=== PATIENT | female | born 1955 | race Caucasian/White ===

== ENCOUNTER 2024-01-02 16:45 | Inpatient (IN) | payer MEDICARE, OTHER ==
[~2024-01-02] VITALS: Ht 172.7 cm; Wt 83.9 kg
[2024-01-02] VITALS (7 sets, daily range): BP systolic 121–152; BP diastolic 73–96; PULSE 62–74; RESP 17–18; TEMP 97.7–97.9; O2SAT 94–100
[2024-01-02 17:09] LABS: BASOPHILS # (AUTO) 0.1 (0.0-0.1); BASOPHILS % 1.3 % (0.0-1.0); EOSINOPHILS % 0.1 % (0.0-6.0); HEMATOCRIT 42.1 % (34.2-44.1); HEMOGLOBIN 13.2 g/dL (12.0-16.0); LYMPHOCYTES # (AUTO) 2.6 (1.0-3.2); MEAN CORPUSCULAR HEMOGLOBIN 28.8 pg (28-32); MEAN CORPUSCULAR HGB CONC 31.4 g/dL (31-35); MEAN CORPUSCULAR VOLUME 91.9 fL (81-99); MONOCYTES # (AUTO) 0.7 (0.2-0.8); MONOCYTES % 8.2 % (4.4-11.3); NEUTROPHILS % 59.2 % (38.7-80.0); PLATELET COUNT 394 x10e3/uL (140-360); RED BLOOD COUNT 4.58 x10e6/uL (3.6-5.1); RED CELL DISTRIBUTION WIDTH 12.8 % (11.7-14.4); WHITE BLOOD COUNT 8.45 x10e3/uL (4.8-10.8)
[2024-01-02 17:23] LABS: CALCIUM 9.6 mg/dL (8.4-10.2); CREATININE, SERUM 1.04 mg/dL (0.57-1.11)
[2024-01-02] MEDS: ENOXAPARIN SOD INJ 40 MG/0.4 ML SYR SC SCH (18:30)
[2024-01-02] MEDS ORDERED: DIAZEPAM INJ 5 MG/ML 2 ML IV ONE (19:15)
[2024-01-02] MEDS: DIPHENHYDRAMINE HCL INJ 50 MG/ML VIAL IV ONE ×2 (19:19→20:18)
[2024-01-02] MEDS ORDERED: AMLODIPINE-VAL1 EACH PO (19:43)
[2024-01-02] MEDS ORDERED: PIROXICAM10 MG PO (19:43)
[2024-01-02] MEDS ORDERED: FLUOXETINE HCL20 MG PO (19:43)
[2024-01-02] MEDS ORDERED: COLESTIPOL HCL1 G1 PO (19:43)
[2024-01-02] MEDS ORDERED: ARMOUR THYROID30 MG PO (19:43)
[2024-01-02] MEDS: DIAZEPAM 5 MG TAB PO ONE (20:17)
[2024-01-02] MEDS: VALSARTAN 160 MG TAB PO SCH (20:27)
[2024-01-02] MEDS: AMLODIPINE BESYLATE 5 MG TAB PO SCH (20:27)
[2024-01-03] VITALS (11 sets, daily range): BP systolic 122–138; BP diastolic 71–85; PULSE 63–87; RESP 18–20; TEMP 97.5–98.4; O2SAT 94–100
[2024-01-03] MEDS: COLESTIPOL HCL 1 G TAB PO SCH (05:28)
[2024-01-03] MEDS ORDERED: COLESTIPOL HCL 1 G TAB PO SCH (06:00)
[2024-01-03] MEDS ORDERED: IOPAMIDOL 370 MG/ML 100 ML INFUS..BTL INJ ONE (06:51)
[2024-01-03] MEDS: PIROXICAM 10 MG PO SCH (10:00)
[2024-01-03] MEDS: FLUOXETINE HCL 20 MG CAP PO SCH (11:53)
[2024-01-03] MEDS: THYROID 60 MG TAB PO SCH (18:36)
[2024-01-04] VITALS (10 sets, daily range): BP systolic 104–121; BP diastolic 62–80; PULSE 60–84; RESP 18–20; TEMP 97.5–98.1; O2SAT 96–100
[2024-01-04] MEDS: THYROID 60 MG TAB PO SCH (22:16)
[2024-01-05] VITALS (10 sets, daily range): BP systolic 96–144; BP diastolic 61–73; PULSE 59–80; RESP 17–18; TEMP 97.6–98.1; O2SAT 93–100
== END 2024-01-05 19:02 | disposition home or self-care (01) | DRG 189 ==
LOC: ER 16:53 → MED/SURG3 17:06
PROVIDERS: ADMIT Family Medicine; ATTEND Family Medicine
PROC: 5A09357 Assistance with Respiratory Ventilation, Less than 24 Consecutive Hours, Continuous Positive Airway Pressure (ICD-10-PCS; principal; 2024-01-03)
DX: J96.01 Acute respiratory failure with hypoxia (principal); E03.9 Hypothyroidism, unspecified; I10 Essential (primary) hypertension; K21.9 Gastro-esophageal reflux disease without esophagitis; E78.5 Hyperlipidemia, unspecified; M79.7 Fibromyalgia; F41.9 Anxiety disorder, unspecified; M19.90 Unspecified osteoarthritis, unspecified site; Z79.890 Hormone replacement therapy; Z90.49 Acquired absence of other specified parts of digestive tract; Z90.710 Acquired absence of both cervix and uterus; Z86.19 Personal history of other infectious and parasitic diseases; Z88.1 Allergy status to other antibiotic agents; Z88.5 Allergy status to narcotic agent; Z82.49 Family history of ischemic heart disease and other diseases of the circulatory system
CPT/HCPCS: 36415; 71260; 80048; 85025; 93005; 94660; 94799; 99283; J1200; J1650; J3360; Q9967